=== PATIENT | female | born 1990 | race Two or more races ===

== ENCOUNTER 2019-12-24 04:26 | Inpatient (IN) | payer OTHER ==
[~2019-12-24] VITALS: Ht 172.7 cm; Wt 2.7 kg
[2019-12-24] MEDS ORDERED: PRENATAL TABLE1 EAC3 PO (05:41)
[2019-12-24] MEDS ORDERED: SYNTHROID200 MCG PO (05:42)
[2019-12-24] MEDS ORDERED: IRON325 MG PO (05:43)
[2019-12-24] MEDS ORDERED: ZOLOFT50 MG PO (05:43)
[2019-12-24] MEDS ORDERED: NIFEDIPINE20 MG PO (05:44)
[2019-12-24] MEDS ORDERED: LOPRESSOR25 MG PO (05:46)
== END 2019-12-26 13:55 | disposition home or self-care (01) | DRG 788 ==
LOC: LDR 04:26 → SURG-SUITE 04:26
PROVIDERS: ADMIT Specialist; ATTEND Specialist
PROC: 4A0HXFZ Measurement of Products of Conception, Cardiac Rhythm, External Approach (ICD-10-PCS; 2019-12-24)
PROC: 10D00Z1 Extraction of Products of Conception, Low, Open Approach (ICD-10-PCS; principal; 2019-12-24 12:00)
DX: O10.02 Pre-existing essential hypertension complicating childbirth (principal); O69.81X0 Labor and delivery complicated by cord around neck, without compression, not applicable or unspecified; Z3A.38 38 weeks gestation of pregnancy; Z37.0 Single live birth